=== PATIENT | female | born 1960 | race Caucasian/White ===

== ENCOUNTER 2019-03-30 14:12 | Emergency (ER) | payer OTHER ==
--- NOTE | 2019-03-30 14:23 | UC ---
Laceration HPI - HPI Summary HPI Summary: 58 yo female presents with laceration to left index finger. She tells me that she was trimming her hedges at home when the clipper slipped and she lacerated her left index finger. Bandaged the area and came to . She is right handed. Last tetanus was in 2017 - History Of Current Complaint Stated Complaint: FINGERS LAC Time Seen by Provider: 03/30/19 14:23 Hx Obtained From: Patient Laceration Location: Finger Mechanism Of Injury: Sharp Trauma Onset/Duration: Sudden Onset Severity: Moderate Pain Intensity: 6 Pain Scale Used: 0-10 Numeric - Allergies/Home Medications Allergies/Adverse Reactions: Allergies Allergy/AdvReac Type Severity Reaction Status Date / Time MS Penicillins [PCN] Allergy Unknown Unknown Verified 12/03/15 11:00 Reaction Details MS Tetracyclines Allergy Rash Verified 12/03/15 11:00 [Tetracyclines] bee stings Allergy Hives Uncoded 12/03/15 11:00 Home Medications: Home Medications ALPRAZolam TAB* [Xanax TAB*] 0.25 mg PO Q6H PRN 03/30/19 [History Confirmed ] buPROPion TAB* [Wellbutrin TAB*] 75 mg PO DAILY 03/30/19 [History Confirmed ] PMH/Surg Hx/FS Hx/Imm Hx Psychological History: Anxiety, Depression - Surgical History Surgical History: Yes Surgery Procedure, Year, and Place: breast bx s. L eye surgery for strabismus x 2 1960,1962 - Family History Known Family History: Positive: None - Social History Lives: With Family Alcohol Use: Daily Alcohol Amount: 1-2 glasses/wine Substance Use Type: None Smoking Status (MU): Never Smoked Tobacco Review of Systems All Other Systems Reviewed And Are Negative: Yes Constitutional: Positive: Negative Skin: Positive: Other - left index finger laceration Respiratory: Positive: Negative Cardiovascular: Positive: Negative Neurovascular: Positive: Negative Neurological: Positive: Negative Psychological: Positive: Negative Physical Exam - Summary Physical Exam Summary: GENERAL: NAD. WDWN. No pain distress. SKIN: LEFT INDEX FINGER: Superficial 7mm laceration to the finger pad. Well approximated at rest. Scant bleeding. Clean appearing and without FB. No tendon involvement. CHEST: No accessory muscle use. Breathing comfortably and in no distress. CV: Pulses intact. Cap refill <2seconds NEURO: Alert. PSYCH: Age appropriate behavior. Triage Information Reviewed: Yes Vital Signs Reviewed: Yes Laceration Repair - Laceration Repair 1 Description: Linear Laceration Size After Repair: Length (cm) - 0.7 Modified For Repair: No Irrigation With Pressure Irrigation Device: Yes Closure Material: Skin Adhesive Closure Method: Single Layer Suture Of: Skin Laceration Course/Dx - Course/Dx Course Of Treatment: The wound was cleansed with NS. Laceration is well approximated at rest, thus dermabond was applied. Dressed with a band-aid. Advised to apply ice to decrease pain and swelling and to keep covered changing the dressing daily until well healed. - Diagnosis Provider Diagnosis: Laceration of left index finger Discharge - Sign-Out/Discharge Documenting (check all that apply): Patient Departure All imaging exams completed and their final reports reviewed: No Studies - Discharge Plan Condition: Stable Disposition: HOME Patient Education Materials: Laceration (DC), Skin Adhesive Care (ED) Referrals: Yohana Osorio MD [Primary Care Provider] - Additional Instructions: If you develop a fever, shortness of breath, chest pain, new or worsening symptoms - please call your PCP or go to the ED immediately. Change the dressing daily until well healed (likely 4-5 days) - Billing Disposition and Condition Condition: STABLE Disposition: Home
[2019-03-30 14:39] VITALS: BP 125/58
== END 2019-03-30 15:00 | disposition home or self-care (01) ==
LOC: UCEAST 14:12
DX: S61.211A Laceration without foreign body of left index finger without damage to nail, initial encounter (principal); W27.1XXA Contact with garden tool, initial encounter; Y93.H2 Activity, gardening and landscaping; Y92.017 Garden or yard in single-family (private) house as the place of occurrence of the external cause; Y99.8 Other external cause status; F41.9 Anxiety disorder, unspecified; F32.9 Major depressive disorder, single episode, unspecified; Z88.0 Allergy status to penicillin
CPT/HCPCS: 12001; 99211; G0463